=== PATIENT | female | born 1980 | race African-American/Black ===

== ENCOUNTER 2017-08-27 22:58 | Emergency (ER) | payer OTHER ==
[~2017-08-27] VITALS: Ht 167.6 cm; Wt 79.3 kg
[2017-08-27 23:31] LABS: ABSOLUTE NEUTROPHILS 4.6 thou/uL (1.4-8.2); BASOPHILS 0.9 % (0.0-2.0); EOSINOPHILS 0.7 % (0.0-3.0); HEMATOCRIT 29.7 % (37.0-47.0); LYMPHOCYTES 13.9 % (24.0-44.0); MCH 30.8 pg (26.0-34.0); MCHC 33.8 g/dL (28.0-37.0); MCV 91.3 fL (80.0-100.0); MONOCYTES 6.1 % (1.0-8.0); PLATELET COUNT 161 thou/uL (150-400); POLYS 78.4 % (36.0-66.0); RBC 3.25 mil/uL (4.20-5.00); RDW 15.1 % (10.5-14.5); WBC 5.8 thou/uL (4.0-11.0)
[2017-08-27 23:37] LABS: CALCIUM 8.9 mg/dL (8.5-10.1); CREATININE 6.3 mg/dL (0.6-1.0); POTASSIUM 3.4 mmol/L (3.5-5.1)
[2017-08-27 23:43] LABS: ALBUMIN 4.4 g/dL (3.4-5.0); TOTAL BILIRUBIN 0.6 mg/dL (<0.1-1.0); TOTAL PROTEIN 7.9 g/dL (6.4-8.2)
[2017-08-28] MEDS ORDERED: ZOFRAN ODT4 MG PO (00:58)
== END 2017-08-28 01:22 | disposition home or self-care (01) ==
LOC: ER 22:58
PROVIDERS: Emergency Medicine
DX: T78.09XA Anaphylactic reaction due to other food products, initial encounter (principal); R11.2 Nausea with vomiting, unspecified

== ENCOUNTER 2017-09-05 13:05 | Emergency (ER) | payer OTHER ==
[~2017-09-05] VITALS: Ht 167.6 cm; Wt 77.1 kg
[~2017-09-05 13:05] MED LIST: ZOFRAN ODT4 MG PO
[2017-09-05 13:58] LABS: ABSOLUTE NEUTROPHILS 4.2 thou/uL (1.4-8.2); EOSINOPHILS 1.9 % (0.0-3.0); HEMATOCRIT 28.9 % (37.0-47.0); HEMOGLOBIN 9.6 gm/dL (12.0-15.0); LYMPHOCYTES 22.6 % (24.0-44.0); MCH 30.9 pg (26.0-34.0); MCHC 33.3 g/dL (28.0-37.0); MCV 92.9 fL (80.0-100.0); MONOCYTES 6.8 % (1.0-8.0); PLATELET COUNT 144 thou/uL (150-400); POLYS 67.7 % (36.0-66.0); RBC 3.12 mil/uL (4.20-5.00); RDW 15.6 % (10.5-14.5); WBC 6.2 thou/uL (4.0-11.0)
[2017-09-05 14:04] LABS: CALCIUM 9.2 mg/dL (8.5-10.1); CREATININE 9.8 mg/dL (0.6-1.0); POTASSIUM 4.8 mmol/L (3.5-5.1)
[2017-09-05 14:10] LABS: ALBUMIN 3.8 g/dL (3.4-5.0); DIRECT BILIRUBIN 0.1 mg/dL (<0.1-0.3); TOTAL BILIRUBIN 0.5 mg/dL (<0.1-1.0); TOTAL PROTEIN 7.4 g/dL (6.4-8.2)
[2017-09-05] MEDS ORDERED: PHENERGAN 25 MG25 M1 PO (14:26)
[2017-09-05] MEDS ORDERED: ZOFRAN ODT4 MG PO (14:26)
== END 2017-09-05 16:25 | disposition home or self-care (01) ==
LOC: ER 13:05
PROVIDERS: Emergency Medicine
DX: I16.0 Hypertensive urgency (principal); D53.9 Nutritional anemia, unspecified; Z88.5 Allergy status to narcotic agent